=== PATIENT | female | born 1955 | race Caucasian/White ===

== ENCOUNTER → 2016-04-03 | Outpatient (CLI) | payer MEDICARE ==
[~2016-04-03] MED LIST: ALBUTEROL0.09 MG/A2 IH; AMBIEN 10MG TAB10 MG PO; APAP/BUTALBITAL1 TA1 PO; ASPIR-LOW81 MG PO; BACLOFEN 10MG T10 MG PO; CLOPIDOGREL75 MG PO; COMBIVENT RESPI1 SPR IH; CRESTOR10 MG PO; ESCITALOPRAM20 MG PO; FLEXERIL5 MG PO; HYDROCODONE-APA1 TA2 PO; HYDROCODONE1 TABLET PO; LEVAQUIN500 MG PO; LORATADINE10 M1 PO; METOCLOPRAMIDE H5 M2 PO; NEURONTIN400 MG PO; NICOTINE PATCH;21 MG TD; OXYCONTIN 10MG10 MG PO; PERCOCET 5/3251 EACH PO; PHENERGAN 25MG.25 M1 PO; PHENERGAN25 M2 RC; PREDNICOT10 MG PO; PRILOSEC40 MG PO; XANAX 0.25MG0.25 MG PO; ZANAFLEX4 M3 PO
[2016-04-03 18:16] LABS: AMPHETAMINES/METAMPHETAMINES NEGATIVE ng/mL (<1000)
== END ==
LOC: LAB 15:46
PROVIDERS: Emergency Medicine
DX: Z79.899 Other long term (current) drug therapy (principal)

== ENCOUNTER → 2016-08-17 | Outpatient (CLI) | payer MEDICARE ==
--- NOTE | 2016-08-17 13:21 | RADIOLOGY REPORT PS360 ---
US RUQ-(ABD LTD)1ORGAN/QUAD/FU HISTORY: RUQ PAIN ORDERING PHYSICIAN: Olu Shell MD PATIENT AGE: 61 years COMPARISON: None FINDINGS: PANCREAS:Unremarkable. No obvious mass or abnormal fluid collection. No ductal dilatation LIVER:No focal liver lesions demonstrated. Homogeneous echogenicity. No intrahepatic biliary ductal dilatation evident RIGHT KIDNEY:Unremarkable. Normal size and echogenicity. No hydronephrosis GALLBLADDER:No gallstones, gallbladder wall thickening, pericholecystic fluid, or biliary dilatation. IMPRESSION: Negative gallbladder/right upper quadrant ultrasound
--- NOTE | 2016-08-17 13:25 | RADIOLOGY REPORT PS360 ---
US THYROID HISTORY: Difficulty swallowing, follow-up abnormal CT of the neck THYROID NODULE ORDERING PHYSICIAN: Olu Shell MD PATIENT AGE: 61 years COMPARISON: None FINDINGS: The right lobe is 4.5 x 0.7 x 2 cm. Homogeneous echogenicity. 5 mm cyst upper pole 9 mm complex nodule lower pole hypoechoic with a small area of increased echogenicity peripherally. Margins are somewhat obscured. The left lobe is 4.3 x 1.2 x 1.9 cm. A 10 mm hypoechoic nodules present superiorly. 3 mm hypoechoic nodule inferiorly and a 5 mm hypoechoic nodule inferiorly. The isthmus has an unremarkable appearance. IMPRESSION: Mildly enlarged thyroid gland with bilateral nodules. The nodules are of low malignant suspicion. 6 month follow-up suggested to confirm stability
== END ==
LOC: RAD 08:30
DX: R10.11 Right upper quadrant pain (principal); E04.1 Nontoxic single thyroid nodule

== ENCOUNTER → 2016-09-29 | Outpatient (CLI) | payer MEDICARE ==
[2016-09-29 16:28] LABS: AMPHETAMINES/METAMPHETAMINES NEGATIVE ng/mL (<1000)
== END ==
LOC: LAB 15:26
PROVIDERS: Emergency Medicine
DX: Z79.891 Long term (current) use of opiate analgesic (principal)

== ENCOUNTER → 2016-10-28 | Outpatient (CLI) | payer MEDICARE ==
[2016-10-28 19:58] LABS: AMPHETAMINES/METAMPHETAMINES NEGATIVE ng/mL (<1000)
== END ==
LOC: LAB 17:14
PROVIDERS: Emergency Medicine
DX: Z79.899 Other long term (current) drug therapy (principal)

== ENCOUNTER → 2016-11-25 | Outpatient (CLI) | payer MEDICARE ==
[2016-11-25 19:52] LABS: AMPHETAMINES/METAMPHETAMINES NEGATIVE ng/mL (<1000)
== END ==
LOC: LAB 17:15
PROVIDERS: Emergency Medicine
DX: Z79.899 Other long term (current) drug therapy (principal)

== ENCOUNTER → 2017-01-22 | Outpatient (CLI) | payer MEDICARE ==
[2017-01-22 18:45] LABS: AMPHETAMINES/METAMPHETAMINES NEGATIVE ng/mL (<1000)
== END ==
LOC: LAB 15:40
PROVIDERS: Emergency Medicine
DX: Z79.899 Other long term (current) drug therapy (principal)